=== PATIENT | male | born 1950 | race Caucasian/White ===

== ENCOUNTER 2017-03-20 07:45 | Day surgery (SDC) | payer MEDICARE ==
[~2017-03-20 07:45] MED LIST: Buffered Lidocaine 0.9% SYRIN* 5 ML/SYR SYRINGE INTRADERM ONE
[2017-03-20] MEDS ORDERED: ceFAZolin 2 GM PREMIX (*) 2 GM/50 ML BAG IVPB ONE (07:55)
[2017-03-20] MEDS ORDERED: fentaNYL* 50 MCG/ML 2 ML VIAL (100 MCG VIAL) ONE (09:42)
[2017-03-20] MEDS ORDERED: Propofol* 10 MG/ML 20 ML BTL IV PUSH ONE (09:43)
[2017-03-20] MEDS ORDERED: Midazolam* 1 MG/ML 2 ML VIAL (2 MG) ONE (09:43)
[2017-03-20] MEDS ORDERED: Lidocaine 2% PF * 5 ML VIAL ONE (09:43)
[2017-03-20] MEDS ORDERED: Lidocaine 1% INJ* 10 MG/ML 30 ML SDV ONE (09:48)
[2017-03-20] MEDS ORDERED: Naloxone* 0.4 MG/ML 1 ML VIAL IV PRN (10:03)
[2017-03-20 10:57] VITALS: BP 113/66
--- NOTE | 2017-03-21 11:30 | OP ---
DATE OF OPERATION: 03/20/17 [facility] DATE OF : 46 SURGEON: Vanessa Shipman MD OPERATIONAL REVIEW SERGEANT: NAZIA Rivera ANESTHESIA: Local MAC. PRE-OP DIAGNOSIS: Right hand Dupuytren's nodule. POST-OP DIAGNOSIS: Right hand Dupuytren's nodule. OPERATIVE PROCEDURE: Removal of Dupuytren's nodule from the right hand. ESTIMATED BLOOD LOSS: Zero. TOURNIQUET TIME: About 25 minutes. INDICATIONS FOR PROCEDURE: Jos eCarlos is a 66-year-old man who has a large Dupuytren 's nodule in the palm of his hand. 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 He presents for removal. DESCRIPTION OF PROCEDURE: The patient was brought to the operating room, was given a sedation anesthetic and a local infiltration of 10 cc of 1% plain lidocaine in the palm of his right hand. The skin of his right hand and forearm was prepped and draped in the usual sterile fashion. The hand and forearm were exsanguinated and the tourniquet elevated to 250 mmHg. A chevron incision was made centered over the mass and we carefully dissected the skin flap off of the Dupuytren's nodule. The nodule was quite extensive measuring approximately 4 cm in length and 2 cm in width, it was carefully dissected away from the neurovascular bundles and from the ring finger flexor tendon sheath. Flexor tendon sheath was divided at the A1 shanae because there were some bands from the Dupuytren's nodule adherent to the tendon sheath. The wound was irrigated and the skin edges were reapproximated with 4-0 nylon suture. The wound was dressed with Xeroform, 4x4, Webril, and an Deni wrap. The patient tolerated the procedure well and was brought to the recovery room in good condition. [id number]/[facility] #: [id number] [facility] CENTERPolly
== END 2017-03-20 11:00 | disposition home or self-care (01) ==
LOC: OREAST 07:45
PROVIDERS: ATTEND Orthopaedic Surgery
DX: M72.0 Palmar fascial fibromatosis [Dupuytren] (principal); E78.00 Pure hypercholesterolemia, unspecified
CPT/HCPCS: 88304; J0690; J2250; J2704; J3010

== ENCOUNTER 2017-08-23 14:12 | Emergency (ER) | payer MEDICARE ==
[2017-08-23] MEDS ORDERED: NS 0.9% 1000 ML* 1,000 ML IV ONE (14:46)
[2017-08-23] MEDS ORDERED: Ondansetron INJ* 2 MG/ML VIAL IV ONE (14:46)
[2017-08-23 15:02] LABS: ABS Basophils 0 10^3/ul (0-0.2); ABS Eosinophils 0 10^3/ul (0-0.6); ABS Lymphocytes 0.6 10^3/ul (1.0-4.8); ABS Monocytes 0.5 10^3/ul (0-0.8); ABS Neutrophils 4.2 10^3/ul (1.5-7.7); ABS Nucleated RBC 0 10^3/ul; Eosinophil % 0 % (0-6); Hematocrit 41 % (42-52); Lymphocyte % 10.8 % (25-47); Mean Corpuscular HGB Conc 34 g/dl (31-36); Mean Corpuscular Hemoglobin 32 pg (27-31); Mean Corpuscular Volume 93 fL (80-94); Mean Platelet Volume 8.7 um3 (7.4-10.4); Nucleated Red Blood Cells % 0.6; Platelet Count 145 10^3/ul (150-450); Red Blood Count 4.41 10^6/ul (4.00-5.40); Red Cell Distribution Width 14 % (10.5-15); White Blood Count 5.3 10^3/ul (3.5-10.8)
[2017-08-23] MEDS ORDERED: Ketorolac INJ* 30 MG/ML 1 ML VIAL IV PUSH ONE (15:06)
[2017-08-23] MEDS ORDERED: Metoclopramide IV* 5 MG/ML 2 ML VIAL IV ONE (15:06)
[2017-08-23] MEDS ORDERED: diPHENhydraMINE IV* 50 MG/ML 1 ml VIAL (BENADRYL) IV ONE (15:06)
--- NOTE | 2017-08-23 15:09 | ED ---
Complex/Multi-Sys Presentation - HPI Summary HPI Summary: This patient is a 66 year old M presenting to [facility] accompanied by his with a chief complaint of nausea and myalgia for the past 4 days.The patient rates the pain 2/10 in severity. Patient reports myalgia, orange urine, RICHMOND, neck stiffnes, and trouble tolerating PO intake. Patient denies hematemesis, fever, diarrhea, CP, SOB, joint swelling, and cough. Pt was seen at [facility] after 2 days of these sx and dx lyme after a negative flu test. Pt was given doxy which he has been taking and has caused some ABD pain. This is Peter agudelo documenting for attending Dr. Damion MENDOZA. - History Of Current Complaint Chief Complaint: EDNauseaVomitDiarrh Time Seen by Provider: 08/23/17 14:46 Hx Obtained From: Patient Onset/Duration: Lasting Days - 4, Still Present Timing: Constant Severity Currently: Mild Severity Initially: Mild Associated Signs And Symptoms: Positive: Abdominal Pain, Other - myalgia, orange urine, RICHMOND, neck stiffnes, and trouble tolerating PO intake. Negative: SOB, Cough, Chest Pain, Fever - Allergies/Home Medications Allergies/Adverse Reactions: Allergies Allergy/AdvReac Type Severity Reaction Status Date / Time No Known Allergies Allergy Verified 08/23/17 14:24 Home Medications: Home Medications DOXYcycline CAP(*) [DOXYcycline 100MG CAP(*)] 100 mg PO BID 08/23/17 [History Confirmed 08/23/17] PMH/Surg Hx/FS Hx/Imm Hx Endocrine/Hematology History: Denies: Hx Thyroid Disease, Hx Unexplained Bleeding Cardiovascular History: Reports: Other Cardiovascular Problems/Disorders - high cholesterol Denies: Hx Auto Implanted Cardiovert Defib, Hx Cardiac Arrest Respiratory History: Denies: Hx Chronic Obstructive Pulmonary Disease (COPD) History: Reports: Hx Kidney Stones - many years ago- nothing recent Sensory History: Reports: Hx Contacts or Glasses - glasses Denies: Hx Hearing Aid Opthamlomology History: Reports: Hx Contacts or Glasses - glasses Neurological History: Reports: Hx Migraine Psychiatric History: Reports: Hx Depression - mild - Cancer History Hx Chemotherapy: No - Surgical History Surgery Procedure, Year, and Place: major knee surgery Hx Anesthesia Reactions: Yes - waking up/vomiting, trouble urinating Infectious Disease History: No Infectious Disease History: Denies: Traveled Outside the [place] in Last 30 Days - Family History Known Family History: Positive: Hypertension - Social History Lives: With Family Alcohol Use: Daily Substance Use Type: Reports: None Smoking Status (MU): Never Smoked Tobacco Review of Systems Positive: Fatigue Positive: Nausea Genitourinary: Other - orange urine Positive: other - trouble tolerating PO intake Positive: Myalgia, Other - neck stiffness Positive: Headache All Other Systems Reviewed And Are Negative: Yes Physical Exam - Summary Physical Exam Summary: Appearance: mild distress Skin: warm, dry, reflects adequate perfusion Head/face: normal Eyes: EOMI, ARLIN, globes are soft ENT: normal Neck: supple, non-tender Respiratory: CTA, breath sounds present Cardiovascular: RRR, pulses symmetrical Abdomen: non-tender, soft Bowel Sounds: present Musculoskeletal: no nuchal rigidity, strength/ROM intact, no meningismus Neuro: normal, sensory motor intact, A&Ox3 Triage Information Reviewed: Yes Vital Signs On Initial Exam: Initial Vitals Temp Pulse Resp BP Pulse Ox 98.4 F 65 20 116/71 99 08/23/17 14:20 08/23/17 14:20 08/23/17 14:20 08/23/17 14:20 08/23/17 14:20 Vital Signs Reviewed: Yes Diagnostics - Vital Signs Vital Signs Temp Pulse Resp BP Pulse Ox 08/23/17 14:32 62 22 94 08/23/17 14:31 62 22 132/79 95 08/23/17 14:20 98.4 F 65 20 116/71 99 - Laboratory Lab Results: Lab Results 08/23/17 Range/Units 14:52 WBC 5.3 (3.5-10.8) 10^3/ul RBC 4.41 (4.00-5.40) 10^6/ul Hgb 14.0 (14.0-18.0) g/dl Hct 41 L (42-52) % MCV 93 (80-94) fL MCH 32 H (27-31) pg MCHC 34 (31-36) g/dl RDW 14 (10.5-15) % Plt Count 145 L (150-450) 10^3/ul MPV 8.7 (7.4-10.4) um3 Neut % (Auto) 79.0 (38-83) % Lymph % (Auto) 10.8 L (25-47) % Ransom % (Auto) 9.9 H (0-7) % Eos % (Auto) 0 (0-6) % Baso % (Auto) 0.3 (0-2) % Absolute Neuts (auto) 4.2 (1.5-7.7) 10^3/ul Absolute Lymphs (auto) 0.6 L (1.0-4.8) 10^3/ul Absolute Monos (auto) 0.5 (0-0.8) 10^3/ul Absolute Eos (auto) 0 (0-0.6) 10^3/ul Absolute Basos (auto) 0 (0-0.2) 10^3/ul Absolute Nucleated RBC 0 10^3/ul Nucleated RBC % 0.6 Result Diagrams: 08/23/17 14:52 08/23/17 14:52 Lab Statement: Any lab studies that have been ordered have been reviewed, and results considered in the medical decision making process. - Radiology CXR Radiology Interpretation Completed By: Radiologist - No radiographic evidence of acute cardiopulmonary disease. Dr. Bruno has reviewed this report - CT CT Brain CT Interpretation Completed By: Radiologist - normal CT brain. Dr. Bruno has reviewed this report Re-Evaluation - Re-Evaluation First Eval Re-Evaluation Time: 16:39 Change: Improved Comment: The patient's headache has resolved and he is not experiencing meningeal signs. Second Eval Re-Evaluation Time: 18:09 Change: Improved Comment: The patient states all sx have resolved and he would like to go home. When I suggested he be admitted he declined. Complex Multi-Symp Course/Dx Course Of Treatment: Patient presents ill-appearing with headache and body aches and malaise. He is currently on doxycycline. Presumed Lyme disease but not tested. Serology added here. CT scan of the brain was negative. We contemplated lumbar puncture but the patient had full resolution of his headaches. He has no meningismus. His CRP is grossly elevated but there is no pneumonia, urinary infection. Blood cultures were obtained. He is feeling much much better and was offered admission however would like to discharge and follow up closely with his primary. We'll call with any positive blood culture result and he understands he would be asked to return in that case. - Diagnoses Differential Diagnoses/HQI/PQRI: Closed Cranial Trauma, Metabolic Abnormality, Sepsis, Urinary Tract Infection, Other Provider Diagnoses: Viral syndrome, Headache - Critical Care Time Critical Care Time: 30-74 min - CCT is EXCLUSIVE of separately billable procedures. Discharge - Sign-Out/Discharge Documenting (check all that apply): Patient Departure - Discharge Plan Condition: Improved Disposition: HOME Prescriptions: Naproxen [Naprosyn 500 mg tab] 500 mg PO BID PRN #10 tablet PRN Reason: Pain Promethazine TAB* [Phenergan Tab*] 25 mg PO Q6H PRN #15 tab PRN Reason: headache, nausea Patient Education Materials: Viral Syndrome (ED) Referrals: Moris Garvey MD [Primary Care Provider] - Additional Instructions: Stay well-hydrated. Call your doctor first thing in the morning for follow-up. We will call you with any blood culture results. If you get worse, develop high fever, have vomiting, worsening headache/neck pain, new symptoms or other concerns as discussed please return to the ER. - Billing Disposition and Condition Condition: IMPROVED Disposition: Home
[2017-08-23 15:16] LABS: EGFR Non-African American 106.8 (>60)
--- NOTE | 2017-08-23 16:04 | RAD ---
INDICATION: Headache COMPARISON: None. TECHNIQUE: Contiguous axial sections of the brain were obtained from the skull base to the vertex without contrast. FINDINGS: The ventricles, cisterns and sulci are within normal limits. The quintana-white matter differentiation is adequately maintained and there is no sulcal effacement. No significant focal abnormality or mass effect is present. There is no evidence for intracranial hemorrhage. No significant focal osseous abnormality is present. The visualized portion of the paranasal sinuses appear clear. The mastoid air cells are well aerated bilaterally. IMPRESSION: Normal CT of the brain.
--- NOTE | 2017-08-23 17:51 | RAD ---
INDICATION: Fever and bodyaches COMPARISON: None TECHNIQUE: PA and lateral views of the chest were obtained. FINDINGS: The heart and mediastinum are normal in size and contour. The lungs are grossly clear. There is no evidence of large pleural effusion. Visualized bones are normal for the patient's age. There is no radiographic evidence of free air beneath the diaphragm IMPRESSION: No radiographic evidence of acute cardiopulmonary disease.
[2017-08-23 18:06] LABS: Urine Appearance Clear; Urine Blood 1+ (Negative); Urine Color Yellow; Urine Ketones 1+ (Negative); Urine Protein 1+(30 mg/dL) (Negative); Urine Red Blood Cell 1+(3-5/hpf) (Absent); Urine Specific Gravity 1.019 (1.010-1.030); Urine Urobilinogen Negative (Negative); Urine White Blood Cell Trace(0-5/hpf) (Absent)
[2017-08-23 18:20] VITALS: BP 117/69
== END 2017-08-23 18:19 | disposition home or self-care (01) ==
LOC: ED 14:12
DX: B34.9 Viral infection, unspecified (principal); R51 Headache; R82.99 Other abnormal findings in urine; E78.00 Pure hypercholesterolemia, unspecified; Z87.442 Personal history of urinary calculi; F32.9 Major depressive disorder, single episode, unspecified; Z82.49 Family history of ischemic heart disease and other diseases of the circulatory system
CPT/HCPCS: 36415; 70450; 71046; 80053; 81003; 81015; 82550; 85025; 86140; 86617; 86618; 87040; 87086; 96374; 96375; 99283; J1200; J1885; J2405; J2765